=== PATIENT | male | born 2000 | race Caucasian/White ===

== ENCOUNTER 2022-01-25 19:19 | Emergency (ER) | payer BC, SELFPAY ==
[2022-01-25 19:25] VITALS: BP 143/88; PULSE 108; RESP 20; TEMP 36.6; O2SAT 98
--- NOTE | 2022-01-25 20:17 | ED.GENADULT ---
HPI - General Adult General Chief complaint: Upper Respiratory Symptoms Stated complaint: Throat Swollen, Hard Time Drinking Water Time Seen by Provider: 01/25/22 20:17 Source: patient Mode of arrival: Ambulatory History of Present Illness HPI narrative: Otherwise healthy 21-year-old gentleman with 3 days of increasing sore throat. He does not describe significant fever but today the pain was so bad he is unable to swallow even water. He does note that he typically is tachycardic. He does not describe headaches, abdominal pain, vomiting or diarrhea. He does have slight nonproductive cough. States that he generally feels unwell and is a bit dizzy when he stands up. Related Data Previous Rx's Medication Instructions Recorded molnupiravir 200 mg capsule (EUA) 800 mg PO Q12H 5 days #40 caps 01/25/22 Allergies Allergy/AdvReac Type Severity Reaction Status Date / Time Penicillins Allergy Verified 01/25/22 19:41 Review of Systems Review of Systems Narrative: Remainder of complete review of systems is otherwise unremarkable except for that included in the HPI. Patient History Medical History (Updated 01/25/22 @ 21:52 by Ptai Xiao MD) COVID-19 Social History Smoking Status: Never smoker Smoking Status: Never smoker Substance Use Type: does not use Exam Initial Vital Signs Initial Vital Signs: Vital Signs Temperature 98 F 01/25/22 19:25 Pulse Rate 108 H 01/25/22 19:25 Respiratory Rate 20 01/25/22 19:25 Blood Pressure 143/88 H 01/25/22 19:25 Pulse Oximetry 98 01/25/22 19:25 Oxygen Delivery Method 01/25/22 19:25 General: Healthy appearing, in no acute distress. Able to give a complete and coherent history. Well-nourished well-developed HEENT: Moist mucous membranes, normal sclera with reactive pupils, no peritonsillar abscess, no exudate. Increasing erythema and irritation to the uvula and tonsillar pillars consistent with his severe cough. Neck: No cervical adenopathy, supple Respiratory: Lungs are clear to auscultation, no wheezing no rales no rhonchi. Full and symmetrical air movement Cardiac: Regular rate and rhythm no murmurs no bruits Abdomen: Soft, nontender, good bowel tones, no flank pain Skin: Warm and dry, no rashes Neurologic: Grossly neurologically intact with no obvious asymmetries or abnormalities Extremities: No trauma, well perfused Psych: Cooperative, appropriate insight and affect Course Orders Ordered: ED Orders 01/25/22 20:40 COVID19 -Nasal RAPID/Pre-Proc Stat Complete Blood Count AUTO DIFF Stat Comprehensive Metabolic Panel Stat Monotest Stat Discontinued Medications Dexamethasone (Dexamethasone 10 Mg/Ml Vial) 10 mg IV NOW ONE Stop: 01/25/22 20:26 Last Admin: 01/25/22 20:40 Dose: 10 mg Documented By: EB Sodium Chloride (Normal Saline 0.9%) 1,000 mls @ 1,000 mls/hr IV BOLUS ONE Stop: 01/25/22 21:24 Last Admin: 01/25/22 20:40 Dose: 1,000 mls/hr Documented By: EB Ketorolac Tromethamine (Ketorolac 30 Mg/Ml Vial) 15 mg IV NOW ONE Stop: 01/25/22 20:26 Last Admin: 01/25/22 20:40 Dose: 15 mg Documented By: EB Vital Signs Vital signs: Vital Signs - 8 hr 01/25/22 19:25 Temperature 98 F Pulse Rate 108 H Respiratory Rate 20 Blood Pressure 143/88 H Pulse Oximetry 98 Oxygen Delivery Method Room Air Medical Decision Making Lab Data Result diagrams: 01/25/22 20:40 01/25/22 20:40 Labs: Lab Results 01/25/22 01/25/22 01/25/22 Range/Units 20:40 20:40 20:40 WBC 8.8 (4.5-11.0) X10^3/uL RBC 5.16 (4.5-5.9) X10^6/uL Hgb 15.5 (13.5-17.5) g/dL Hct 45.3 (41-53) % MCV 87.7 (80-100) fL MCH 30.1 (26-34) PG MCHC 34.3 (30-36) % RDW 13.0 (11.6-14.8) % Plt Count 230 (150-400) X10^3/uL Neut % (Auto) 67.6 (50-75) % Lymph % (Auto) 18.9 L (25-40) % Powell % (Auto) 12.4 (3-14) % Eos % (Auto) 0.7 L (2-4) % Baso % (Auto) 0.4 (0-2) % Neut # (Auto) 6000 (8500-8883) /uL Lymph # (Auto) 1700 (3555-5462) /uL Powell # (Auto) 1100 H (0-900) /uL Eos # (Auto) 100 (0-450) /uL Baso # (Auto) 0 (0-100) /uL Sodium 138 (137-145) mmol/L Potassium 4.1 (3.4-5.1) mmol/L Chloride 103 (98-107) mmol/L Carbon Dioxide 24 (22-32) mmol/L BUN 10 (9-20) mg/dL Creatinine 0.64 L (0.66-1.25) mg/dL Estimated GFR > 60 (>60) mL/min BUN/Creatinine Ratio 15.6 (6-22) Glucose 111 H (70-100) mg/dL Calcium 8.8 (8.4-10.2) mg/dL Total Bilirubin 1.0 (0.2-1.3) mg/dL AST 30 (17-59) IU/L ALT 35 (<50) IU/L Alkaline Phosphatase 52 (38-126) U/L Total Protein 8.3 H (6.3-8.2) g/dL Albumin 4.8 (3.5-5.0) g/dL Globulin 3.5 (1.7-4.1) g/dL Albumin/Globulin Ratio 1.4 (1.0-2.8) SARS-CoV-2 (PCR) (Negative) Monoscreen Negative (Negative) 01/25/22 Range/Units 20:40 WBC (4.5-11.0) X10^3/uL RBC (4.5-5.9) X10^6/uL Hgb (13.5-17.5) g/dL Hct (41-53) % MCV (80-100) fL MCH (26-34) PG MCHC (30-36) % RDW (11.6-14.8) % Plt Count (150-400) X10^3/uL Neut % (Auto) (50-75) % Lymph % (Auto) (25-40) % Powell % (Auto) (3-14) % Eos % (Auto) (2-4) % Baso % (Auto) (0-2) % Neut # (Auto) (4975-4884) /uL Lymph # (Auto) (3034-1786) /uL Powell # (Auto) (0-900) /uL Eos # (Auto) (0-450) /uL Baso # (Auto) (0-100) /uL Sodium (137-145) mmol/L Potassium (3.4-5.1) mmol/L Chloride (98-107) mmol/L Carbon Dioxide (22-32) mmol/L BUN (9-20) mg/dL Creatinine (0.66-1.25) mg/dL Estimated GFR (>60) mL/min BUN/Creatinine Ratio (6-22) Glucose (70-100) mg/dL Calcium (8.4-10.2) mg/dL Total Bilirubin (0.2-1.3) mg/dL AST (17-59) IU/L ALT (<50) IU/L Alkaline Phosphatase (38-126) U/L Total Protein (6.3-8.2) g/dL Albumin (3.5-5.0) g/dL Globulin (1.7-4.1) g/dL Albumin/Globulin Ratio (1.0-2.8) SARS-CoV-2 (PCR) Positive H (Negative) Monoscreen (Negative) Point of Care Testing Rapid Strep A Negative Point of care testing: Point of Care Testing Rapid Strep A Negative MDM Narrative Medical decision making narrative: 21-year-old gentleman with 3 days of increasing pharyngitis. Describes no significant cough or fevers. Negative mono negative strep positive COVID. Exam is otherwise benign. With 3 days and the symptoms, he is not vaccinated offered molnupiravir. Was unsure if he wanted to follow through this. Went over risks and benefits. He is given a prescription and can fill it if he chooses to. Did let him know that it is best started as soon as possible and needs to be started within 5 days of symptoms. At this point he is feeling better after fluids Toradol and steroids, is able to swallow, hemodynamically stable with saturations in the upper 90s and in is safe for home discharge Discharge Plan Departure Patient Disposition: Home Clinical Impression: COVID-19 Pharyngitis Qualifiers: Pharyngitis/tonsillitis etiology: other specified organisms Qualified Code(s): J02.8 - Acute pharyngitis due to other specified organisms Instructions: DI for COVID-19 (Suspected or Confirmed ) Activity Restrictions/Additional Instructions: Thank you for coming in today You have COVID. This is the source of your sore throat. There is no evidence of bacterial infection specifically no strep throat. You do not have mononucleosis. Molnupiravir was offered. I have given you a prescription if you choose to fill it you need to begin within 5 days of your initial symptoms. The earlier it is started the more effective the medication is. Please make sure that you are at home and isolating until your feeling significantly improved than it has been at least 5 days from years initial symptoms. After that it is recommended that you wear mask when you are in public for the next 10 days to make sure that you are not infecting others around her. If you find that you are getting worse or develop any new symptoms, please feel free to return to the emergency department for further evaluation. Prescriptions: New molnupiravir 200 mg capsule 800 mg PO Q12H 5 Days Qty: 40 0RF Referrals: Miscellaneous,Doctor, MD [Primary Care Provider] -
[2022-01-25] MEDS: SODIUM CHLORIDE 0.9% 1,000 ML 1000 ML IV (20:40)
[2022-01-25] MEDS: KETOROLAC 30 MG/ML VIAL 15 MG IV (20:40)
[2022-01-25] MEDS: DEXAMETHASONE 10 MG/ML VIAL IV (20:40)
[2022-01-25 20:54] LABS: Add Manual Diff / Slide Review NO; Basophils Absolute Auto 0 /uL (0-100); Basophils Percent Auto 0.4 % (0-2); Eosinophils Absolute Auto 100 /uL (0-450); Eosinophils Percent Auto 0.7 % (2-4); Hematocrit 45.3 % (41-53); Hemoglobin 15.5 g/dL (13.5-17.5); Lymphocytes Absolute Auto 1700 /uL (1100-4500); Lymphocytes Percent Auto 18.9 % (25-40); Mean Corpuscular HGB Conc 34.3 % (30-36); Mean Corpuscular Hemoglobin 30.1 PG (26-34); Mean Corpuscular Volume 87.7 fL (80-100); Monocytes Absolute Auto 1100 /uL (0-900); Monocytes Percent Auto 12.4 % (3-14); Neutrophils Absolute Auto 6000 /uL (1500-7000); Neutrophils Percent Auto 67.6 % (50-75); Platelet Count 230 X10^3/uL (150-400); Red Blood Cell Count 5.16 X10^6/uL (4.5-5.9); White Blood Cell Count 8.8 X10^3/uL (4.5-11.0)
[2022-01-25 20:58] LABS: Monotest Negative (Negative)
[2022-01-25 21:05] LABS: Alanine Aminotransferase 35 IU/L (<50); Albumin 4.8 g/dL (3.5-5.0); Albumin Globulin Ratio 1.4 (1.0-2.8); Alkaline Phosphatase 52 U/L (38-126); Aspartate Aminotransferase 30 IU/L (17-59); BUN Creatinine Ratio 15.6 (6-22); Blood Urea Nitrogen 10 mg/dL (9-20); Calcium 8.8 mg/dL (8.4-10.2); Carbon Dioxide 24 mmol/L (22-32); Chloride 103 mmol/L (98-107); Estimated Glomerular Filt Rate > 60 mL/min (>60); Globulin 3.5 g/dL (1.7-4.1); Glucose 111 mg/dL (70-100); HEMOLYSIS 67 (0-50); Sodium 138 mmol/L (137-145); Total Protein 8.3 g/dL (6.3-8.2)
[2022-01-25 21:06] LABS: Potassium 4.1 mmol/L (3.4-5.1)
[2022-01-25 21:45] LABS: COVID19 -Nasal RAPID POSITIVE (Negative)
[2022-01-25 22:02] VITALS: BP 136/69; PULSE 81; O2SAT 98
== END 2022-01-25 22:03 | disposition home or self-care (01) ==
PROVIDERS: Emergency Provider Emergency Medicine
DX: U07.1 COVID-19 (principal); J02.8 Acute pharyngitis due to other specified organisms
CPT/HCPCS: 36415; 80053; 85025; 86318; 87635; 87880; 96361; 96374; 96375; 99284; C9803; J1100; J1885